=== PATIENT | female | born 2000 | race American Indian/Alaskan Native ===

== ENCOUNTER 2021-01-08 12:58 | Emergency (ER) | payer OTHER ==
[2021-01-08 13:32] VITALS: BP 104/49
[2021-01-08 15:13] LABS: Bilirubin,Urine NEG (Negative); Blood,Urine NEG (Negative); Color,Urine Yellow (Yellow); Mucus,Urine FEW /HPF; Protein,Urine <15 mg/dL mg/dL (Negative); Urobilinogen,Urine < 2.0 mg/dL (<2.0)
[2021-01-08] MEDS ORDERED: LIDOCAINE-MPF (1%) 10 MG/1 ML VIAL 5 ML INFILTRATI ONE (16:06)
--- NOTE | 2021-01-08 16:16 | Emergency Department Report ---
ED Female HPI - General Chief complaint: Urogenital-Female Stated complaint: POSS UTI Source: patient Mode of arrival: Ambulatory Limitations: No Limitations - History of Present Illness Initial comments: ER pending 20-year-old -[place] Citizen female presents to the emergency room for 2-day history of urinary frequency urgency and urine with odor. She does admit to being sexually active does admit to vaginal discharge and concern for STD. Patient denies any abdominal pain at this time. Last menstrual period was 12/26/2020. She is 0. MD Complaint: vaginal discharge, dysuria, possible STD Onset/Timin -: days(s) Severity: moderate Severity scale (0 -10): 0 Worsens with: urination Are you Now?: No Last Menstrual Period: 12/26/20 EDC: 10/02/21 Associated Symptoms: vaginal discharge, dysuria - Related Data Sexually active: Yes : 0 Previous Rx's Medication Instructions Recorded Last Taken Type Doxycycline Hyclate [Doxycycline 100 mg PO Q12HR 7 Days #14 tab 01/08/21 Unknown Rx Hyclate TAB] metroNIDAZOLE [Flagyl] 500 mg PO Q8HR 7 Days #21 tablet 01/08/21 Unknown Rx Allergies Allergy/AdvReac Type Severity Reaction Status Date / Time ibuprofen AdvReac Itching Verified 01/08/21 13:27 ED Review of Systems ROS: Stated complaint: POSS UTI Other details as noted in HPI ED Past Medical Hx - Medications Home Medications: Home Medications Medication Instructions Recorded Confirmed Last Taken Type Doxycycline Hyclate [Doxycycline 100 mg PO Q12HR 7 Days #14 tab 01/08/21 Unknown Rx Hyclate TAB] metroNIDAZOLE [Flagyl] 500 mg PO Q8HR 7 Days #21 tablet 01/08/21 Unknown Rx ED Physical Exam - General Limitations: No Limitations General appearance: alert, in no apparent distress - Head Head exam: Present: atraumatic, normocephalic - Eye Eye exam: Present: normal appearance - ENT ENT exam: Present: mucous membranes moist - Neck Neck exam: Present: normal inspection - Respiratory Respiratory exam: Present: normal lung sounds bilaterally. Absent: respiratory distress - Cardiovascular Cardiovascular Exam: Present: regular rate, normal rhythm. Absent: systolic murmur, diastolic murmur, rubs, gallop - GI/Abdominal GI/Abdominal exam: Present: soft, normal bowel sounds. Absent: distended, tenderness, guarding - Extremities Exam Extremities exam: Present: normal inspection - Back Exam Back exam: Present: normal inspection - Neurological Exam Neurological exam: Present: alert, oriented X3 - Psychiatric Psychiatric exam: Present: normal affect, normal mood - Skin Skin exam: Present: warm, dry, intact, normal color. Absent: rash ED Course Vital Signs 01/08/21 13:29 Temperature 98.5 F Pulse Rate 82 Respiratory 18 Rate Blood Pressure 104/49 O2 Sat by Pulse 100 Oximetry ED Medical Decision Making - Medical Decision Making 20-year-old -[place] Citizen female presents to the emergency room for 2-day history of urinary frequency urgency and urine with odor. She does admit to being sexually active does admit to vaginal discharge and concern for STD. Patient denies any abdominal pain at this time. Last menstrual period was 12/26/2020. She is 0. Urinalysis negative. We will treat patient for STD Rocephin 1 g IM, patient be discharged on doxycycline Flagyl referral to health department and informed patient she needs to restrain from intercourse until her partner is evaluated tested treated. Encourage patient to use condoms. Critical care attestation.: If time is entered above; I have spent that time in minutes in the direct care of this critically ill patient, excluding procedure time. ED Disposition Clinical Impression: Vaginitis, Possible exposure to STD Disposition: 01 HOME / SELF CARE / HOMELESS Is pt being admited?: No Does the pt Need Aspirin: No Condition: Stable Instructions: Vaginitis Additional Instructions: Urinalysis is negative for any urinary tract infection. I do recommend he follow-up at the health department. I am treating you for gonorrhea and bacterial vaginosis as well as Trichomonas. You are also being treated for chlamydia. Refrain from intercourse until you are fully tested and treated. Inform your sexual partners that they need to be screened and treated before having intercourse. Prescriptions: Doxycycline Hyclate [Doxycycline Hyclate TAB] 100 mg PO Q12HR 7 Days #14 tab metroNIDAZOLE [Flagyl] 500 mg PO Q8HR 7 Days #21 tablet Referrals: PRIMARY CARE [Primary Care Provider] - 3-5 Days [facility] [Outside] - 3-5 Days [facility] [Provider Group] - 3-5 Days [facility] [Provider Group] - 3-5 Days Forms: Work/School Release Form(ED) Time of Disposition: 16:45
== END 2021-01-08 17:21 | disposition home or self-care (01) ==
LOC: ED 12:58
DX: N76.0 Acute vaginitis (principal); Z20.2 Contact with and (suspected) exposure to infections with a predominantly sexual mode of transmission; Z88.6 Allergy status to analgesic agent
CPT/HCPCS: 81001; 96372; 99283; J0696